=== PATIENT | female | born 2005 | race Hispanic/Latino ===

== ENCOUNTER 2025-03-30 12:06 | Day surgery (SDC) | payer OTHER ==
[2025-03-30] MEDS ORDERED: hydrALAZINE 20 MG/ML VIAL SLOW IVP PRN (12:49)
== END 2025-03-30 15:07 | disposition home or self-care (01) ==
LOC: CSHLD/OP 12:06
PROVIDERS: ATTEND Family Medicine
DX: O99.891 Other specified diseases and conditions complicating pregnancy (principal); R35.0 Frequency of micturition; Z3A.38 38 weeks gestation of pregnancy; Z67.40 Type O blood, Rh positive; Z79.899 Other long term (current) drug therapy
CPT/HCPCS: 99283

== ENCOUNTER 2025-03-30 18:58 | Inpatient (IN) | payer OTHER ==
[2025-03-30] MEDS ORDERED: Acetaminophen 500 MG TAB PO PRN (19:26)
[2025-03-30] MEDS ORDERED: Diphenoxylate HCl/Atropine Tablet PO PRN ×2 (19:26)
[2025-03-30] MEDS ORDERED: Lidocaine 1% (PF) 30 ML VIAL SC PRN (19:26)
[2025-03-30] MEDS ORDERED: Ondansetron PF 4 MG/2 ML Vial IVP PRN ×2 (19:26→22:42)
[2025-03-30] MEDS ORDERED: Carboprost 250 MCG/ML AMP IM PRN (19:26)
[2025-03-30] MEDS ORDERED: hydrALAZINE 20 MG/ML VIAL SLOW IVP PRN ×2 (19:26→22:42)
[2025-03-30] MEDS ORDERED: Tranexamic Acid 1,000 MG/10 ML VIAL IVP PRN (19:26)
[2025-03-30] MEDS ORDERED: Methylergonovine 0.2 MG/ML VIAL IM PRN (19:26)
[2025-03-30] MEDS ORDERED: Oxytocin 30 units/NS 500 ML 500 ML IV SCH ×2 (19:30)
[2025-03-30 19:47] VITALS: BMI 22.2
[2025-03-30 20:06] LABS: Hematocrit 35.1 % (34.9-44.5); Hemoglobin 11.4 g/dL (12.0-15.5); Mean Corpuscular Hemoglobin 26.9 pg (27.0-33.0); Mean Corpuscular Volume 82.8 fL (81.6-98.3); Platelet Count 258 10x3/uL (150-450); Red Blood Cell (RBC) Count 4.24 10x6/uL (3.90-5.03); White Blood Cell (WBC) Count 14.76 10x3/uL (3.5-10.5)
[2025-03-30] MEDS: Oxytocin 30 units/NS 500 ML 500 ML IV SCH (20:18)
[2025-03-30 20:42] LABS: HIV (1/2) Antibody/Antigen Non-Reactive (NonReactive); HIV 1/2 INDEX 0.13 S/CO (<1.00); Hep B Surf Ag - L&D Non-Reactive S/CO (NonReactive)
[2025-03-30 20:46] LABS: Syphilis Antibody Index 0.05 S/CO (<1.00 Non-Reactive)
[2025-03-30] MEDS ORDERED: Bisacodyl 10 MG SUPP PR PRN (22:42)
[2025-03-30] MEDS ORDERED: Boostrix 0.5 ML (Tdap) VIAL (>/=7 yrs of age) IM ONE (22:42)
[2025-03-30] MEDS ORDERED: Benzocaine-Menthol 82.5 ML CAN TOP PRN (22:42)
[2025-03-30] MEDS ORDERED: Milk Of Magnesia 30 ML UDCUP PO PRN (22:42)
[2025-03-30] MEDS ORDERED: Preparation H Ointment 28 GM TUBE PR PRN (22:42)
[2025-03-30] MEDS ORDERED: Lanolin Ointment 7 GM TUBE TOP PRN (22:42)
[2025-03-31] MEDS: Ibuprofen 800 MG TAB PO SCH ×2 (00:40→08:09)
[2025-03-31] MEDS: Ferrous Sulfate 325 MG TAB PO SCH (07:34)
[2025-04-01 08:59] VITALS: BP 121/66; TEMP 98.4
== END 2025-04-01 13:00 | disposition home or self-care (01) | DRG 807 ==
LOC: CSHLD/OP 18:58 → CSHLD 19:35 → CSHPP 22:41
PROVIDERS: ADMIT Family Medicine; ATTEND Family Medicine
PROC: 10E0XZZ Delivery of Products of Conception, External Approach (ICD-10-PCS; principal; 2025-03-30)
PROC: 0KQM0ZZ Repair Perineum Muscle, Open Approach (ICD-10-PCS; 2025-03-30)
PROC: 0UQMXZZ Repair Vulva, External Approach (ICD-10-PCS; 2025-03-30)
PROC: 4A1HXCZ Monitoring of Products of Conception, Cardiac Rate, External Approach (ICD-10-PCS; 2025-03-30)
DX: O70.0 First degree perineal laceration during delivery (principal); Z37.0 Single live birth; Z3A.38 38 weeks gestation of pregnancy; Z79.899 Other long term (current) drug therapy
CPT/HCPCS: 36415; 85027; 86780; 86850; 86900; 86901; 87340; 87389; 99285; J2590